=== PATIENT | male | born 1990 | race Caucasian/White ===

== ENCOUNTER 2016-08-24 18:11 | Emergency (ER) | payer OTHER ==
[~2016-08-24] VITALS: Ht 167.6 cm; Wt 76.7 kg
[2016-08-24 20:40] VITALS: BP 146/72
== END 2016-08-24 20:53 | disposition home or self-care (01) ==
LOC: M ED 19:23
DX: L21.9 Seborrheic dermatitis, unspecified (principal); Z88.0 Allergy status to penicillin

== ENCOUNTER 2016-11-01 22:22 | Emergency (ER) | payer OTHER ==
[~2016-11-01] VITALS: Ht 167.6 cm; Wt 78.9 kg
[2016-11-01] MEDS ORDERED: CLEO300C2 PO (23:45)
[2016-11-01] MEDS ORDERED: IBUPROFEN 800 MG TAB PO ONE (23:45)
[2016-11-01] MEDS ORDERED: LOTR1CRE11 TOP (23:45)
[2016-11-01] MEDS ORDERED: CLINDAMYCIN 150 MG CAP PO ONE (23:45)
[2016-11-02] VITALS: BP 135/66
== END 2016-11-02 00:02 | disposition home or self-care (01) ==
LOC: M ED 22:22
DX: B35.3 Tinea pedis (principal); L60.0 Ingrowing nail; L03.031 Cellulitis of right toe; J45.909 Unspecified asthma, uncomplicated; Z88.1 Allergy status to other antibiotic agents

== ENCOUNTER 2025-02-11 18:53 | Emergency (ER) | payer OTHER, SELFPAY ==
[~2025-02-11] VITALS: Ht 167.6 cm; Wt 73.0 kg
[~2025-02-11 18:53] MED LIST: CLEO300C2 PO; LOTR1CRE12 TOP
[2025-02-11 18:56] VITALS: BP 143/77; TEMP 98.8; O2SAT 97
[2025-02-11] MEDS ORDERED: AMOX875T2 PO (19:45)
[2025-02-11] MEDS: AUGMENTIN 875 MG TAB PO ONE (19:59)
[2025-02-11] MEDS: IBUPROFEN 800 MG TAB PO ONE (20:00)
== END 2025-02-11 20:48 | disposition home or self-care (01) ==
LOC: M ED 18:53
DX: K08.89 Other specified disorders of teeth and supporting structures (principal); Z88.1 Allergy status to other antibiotic agents; Z79.2 Long term (current) use of antibiotics